=== PATIENT | male | born 2000 | race Caucasian/White ===

== ENCOUNTER 2021-01-05 14:22 | Emergency (ER) | payer MEDICAID ==
--- NOTE | 2021-01-05 19:10 | EDM.PDOC ---
ED HPI GENERAL MEDICAL PROBLEM - General Chief Complaint: General Stated Complaint: TINGLING LEFT ARM Time Seen by Provider: 01/05/21 14:40 Source of Information: Reports: Patient History Limitations: Reports: No Limitations - History of Present Illness INITIAL COMMENTS - FREE TEXT/NARRATIVE: Pt. presents to ER with complaints of intermittent R lateral arm pain/paresthesia in lower arm/hand. Denies any trauma to the area. He is not experiencing any lower extremity pain/numbness. Pt. denies any acute vision loss or change. He denies any problems with this in the past. He denies any headache. No problems with speech or ambulation. No problems with vertigo/dysequilibrium. Pt. currently not experiencing any symptoms on arrival to ER. Onset: Today Onset Date: 01/05/21 - Related Data Allergies Allergy/AdvReac Type Severity Reaction Status Date / Time No Known Allergies Allergy Verified 01/05/21 14:30 Home Meds: Home Meds Dextroamphetamine/Amphetamine [Adderall Xr 10 mg Capsule] 10 mg PO DAILY 01/05/21 [History] Past Medical History - Past Surgical History Musculoskeletal Surgical History: Reports: Arthroscopic Knee Social & Family History - Tobacco Use Tobacco Use Status *Q: Never Tobacco User ED ROS GENERAL - Review of Systems Review Of Systems: See Below Constitutional: Reports: No Symptoms HEENT: Reports: No Symptoms Respiratory: Reports: No Symptoms Cardiovascular: Reports: No Symptoms Endocrine: Reports: No Symptoms GI/Abdominal: Reports: No Symptoms : Reports: No Symptoms Musculoskeletal: Reports: No Symptoms Skin: Reports: No Symptoms Neurological: Reports: Other (see HPI) Psychiatric: Reports: No Symptoms Hematologic/Lymphatic: Reports: No Symptoms Immunologic: Reports: No Symptoms ED EXAM, GENERAL - Physical Exam Exam: See Below Exam Limited By: No Limitations General Appearance: Alert, WD/WN, No Apparent Distress Respiratory/Chest: No Respiratory Distress, Lungs Clear, Normal Breath Sounds, No Accessory Muscle Use, Chest Non-Tender Cardiovascular: Normal Peripheral Pulses, Regular Rate, Rhythm, No Edema, No JVD, No Murmur Peripheral Pulses: 4+: Radial (L) GI/Abdominal: Soft, Non-Tender, No Distention, No Mass (Male) Exam: Deferred Rectal (Males) Exam: Deferred Extremities: Normal Inspection, Normal Range of Motion, Non-Tender, No Pedal Edema, Normal Capillary Refill Neurological: Alert, Oriented, CN II-XII Intact, Normal Cognition, Normal Gait, Normal Reflexes, No Motor/Sensory Deficits Psychiatric: Normal Affect, Normal Mood Skin Exam: Warm, Dry, Intact, Normal Color, No Rash Course - Vital Signs Last Recorded V/S: Last Vital Signs Temp 37.1 C 01/05/21 14:30 Pulse 70 01/05/21 14:30 Resp 18 01/05/21 14:30 BP 128/57 L 01/05/21 14:30 Pulse Ox 98 01/05/21 14:30 Departure - Departure Time of Disposition: 15:30 Disposition: Home, Self-Care 01 Clinical Impression: Brachial plexus neuropathy - Discharge Information Instructions: Burner or Stinger Nerve Injury Rehab-SportsMed, Cervical Radiculopathy, [id number] Referrals: PCP,Not In Area [Primary Care Provider] - Forms: ED Department Discharge Additional Instructions: Ibuprofen 200mg 3 tabs every 6 hours as needed for pain. I would take this on a schedule for the next few days to decrease the inflammation and hopefully resolve the problem. You can still participate in football. Recheck in clinic in 10-14 days Sepsis Event Note (ED) - Focused Exam Vital Signs: Vital Signs Temp Pulse Resp BP Pulse Ox 01/05/21 14:30 37.1 C 70 18 128/57 L 98 - Problem List Review Problem List Initiated/Reviewed/Updated: Yes - Assessment/Plan Plan: Ibuprofen 200mg 3 tabs every 6 hours as needed for pain. I would take this on a schedule for the next few days to decrease the inflammation and hopefully resolve the problem. You can still participate in football. Recheck in clinic in 10-14 days
== END 2021-01-05 14:50 | disposition home or self-care (01) ==
LOC: VM.ED 14:22
DX: G54.0 Brachial plexus disorders (principal)
CPT/HCPCS: 99283